=== PATIENT | female | born 1995 | race American Indian/Alaskan Native ===

== ENCOUNTER 2019-07-30 18:37 | Emergency (ER) | payer BC ==
[2019-07-30 18:48] VITALS: BP 140/82
--- NOTE | 2019-07-30 18:49 | Emergency Department Report ---
- General Chief Complaint: Upper Respiratory Infection Stated Complaint: FLU SX Time Seen by Provider: 07/30/19 18:44 Source: patient Mode of arrival: Ambulatory Limitations: No Limitations - History of Present Illness Initial Comments: pt is a 23 yo female who presents to the ED with c/o flu symptoms that began two days ago. she states that her brother tested positive for the flu by nasal swab. she has associated congestion, dry cough, generalized body aches, nausea, chills. she denies any vomiting, diarrhea, abd pain, ear pain, sore throat.she denies any PMHx. pt is a smoker. states she has an allergy to amoxicllin. - Related Data Previous Rx's Medication Instructions Recorded Last Taken Type Ondansetron [Zofran Odt] 4 mg PO Q8HR PRN #12 tab.rapdis 07/30/19 Unknown Rx Oseltamivir [Tamiflu] 75 mg PO BID 5 Days #10 cap 07/30/19 Unknown Rx Allergies Allergy/AdvReac Type Severity Reaction Status Date / Time amoxicillin Allergy Anaphylaxis Verified 07/30/19 18:41 peanuts Allergy Anaphylaxis Uncoded 07/30/19 18:41 ED Review of Systems ROS: Stated complaint: FLU SX Other details as noted in HPI Comment: All other systems reviewed and negative ED Past Medical Hx - Medications Home Medications: Home Medications Medication Instructions Recorded Confirmed Last Taken Type Ondansetron [Zofran Odt] 4 mg PO Q8HR PRN #12 tab.rapdis 07/30/19 Unknown Rx Oseltamivir [Tamiflu] 75 mg PO BID 5 Days #10 cap 07/30/19 Unknown Rx ED Physical Exam - General Limitations: No Limitations General appearance: alert, in no apparent distress - Head Head exam: Present: atraumatic, normocephalic - Eye Eye exam: Present: normal appearance - ENT ENT exam: Present: normal orophraynx, mucous membranes moist, TM's normal bilaterally, normal external ear exam, other (clear nasal drainage bilaterally) - Respiratory Respiratory exam: Present: normal lung sounds bilaterally. Absent: respiratory distress, wheezes, rales, rhonchi, stridor, chest wall tenderness, accessory muscle use, decreased breath sounds, prolonged expiratory - Cardiovascular Cardiovascular Exam: Present: regular rate, normal rhythm, normal heart sounds. Absent: systolic murmur, diastolic murmur, rubs, gallop - Neurological Exam Neurological exam: Present: alert, oriented X3 - Psychiatric Psychiatric exam: Present: normal affect, normal mood - Skin Skin exam: Present: warm, dry, intact ED Course Vital Signs 07/30/19 18:46 Temperature 98.9 F Pulse Rate 92 H Respiratory 18 Rate Blood Pressure 140/82 O2 Sat by Pulse 99 Oximetry ED Medical Decision Making - Medical Decision Making pt is a 23 yo female who presents to the ED with c/o flu symptoms that began two days ago. she states that her brother tested positive for the flu by nasal swab. she has associated congestion, dry cough, generalized body aches, nausea, chills. she denies any vomiting, diarrhea, abd pain, ear pain, sore throat.she denies any PMHx. pt is a smoker. states she has an allergy to amoxicllin. VSS. pts breath sounds are clear bilaterally without w/r/r. pt has clinical s/sx of the flu with a sick contact. pt given prescription for tamiflu and zofran as needed for nausea. advised pt to please take medication as prescribed. increase your fluid intake over the next several days. take tylenol or ibuprofen for body aches. get plenty of rest. follow up with a primary care doctor in the next 2-3 days. return to the emergency room for any new or worsening symptoms Critical care attestation.: If time is entered above; I have spent that time in minutes in the direct care of this critically ill patient, excluding procedure time. ED Disposition Clinical Impression: Influenza Disposition: DC-01 TO HOME OR SELFCARE Is pt being admited?: No Does the pt Need Aspirin: No Condition: Stable Instructions: Influenza (ED) Additional Instructions: please take medication as prescribed. increase your fluid intake over the next several days. take tylenol or ibuprofen for body aches. get plenty of rest. follow up with a primary care doctor in the next 2-3 days. return to the emergency room for any new or worsening symptoms Prescriptions: Oseltamivir [Tamiflu] 75 mg PO BID 5 Days #10 cap Ondansetron [Zofran Odt] 4 mg PO Q8HR PRN #12 tab.rapdis PRN Reason: Nausea And Vomiting Referrals: BRUNO TERAN MD [Staff Physician] - 2-3 Days Time of Disposition: 18:49 Print Language: PRYDEINIG
== END 2019-07-30 19:00 | disposition home or self-care (01) ==
LOC: ED 18:37
DX: J11.1 Influenza due to unidentified influenza virus with other respiratory manifestations (principal); Z79.899 Other long term (current) drug therapy; Z88.1 Allergy status to other antibiotic agents; Z91.010 Allergy to peanuts

== ENCOUNTER 2019-08-26 20:36 | Emergency (ER) | payer BC ==
[2019-08-26] MEDS ORDERED: ONDANSETRON 4 MG/2 ML INJ ONE (20:45)
[2019-08-26] MEDS ORDERED: MECLIZINE 25 MG TAB PO ONE (20:48)
[2019-08-26] MEDS ORDERED: SODIUM CHLORIDE 0.9% 1000 ML 1,000 ML IV ONE (20:48)
[2019-08-26] MEDS ORDERED: ONDANSETRON 4 MG/2 ML INJ IV ONE (20:59)
--- NOTE | 2019-08-26 21:03 | Emergency Department Report ---
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 The dizziness is more of a vertigo-like sensation. She has a mild generalized headache. Denies any vision change, slurred speech or any neurological deficits. She tried some Zofran earlier without much relief. She says that she was previously diagnosed one time with vertigo and prescribe some meclizine but it had never returned and she has never needed to take it. Otherwise no other past medical history. ED Past Medical Hx - Past Medical History Previous Medical History?: No - Surgical History Past Surgical History?: No - Social History Smoking Status: Current Some Day Smoker Substance Use Type: None - Medications Home Medications: Home Medications Medication Instructions Recorded Confirmed Last Taken Type Ondansetron [Zofran Odt] 4 mg PO Q8HR PRN #12 tab.rapdis 07/30/19 Unknown Rx Oseltamivir [Tamiflu] 75 mg PO BID 5 Days #10 cap 07/30/19 Unknown Rx ED Review of Systems ROS: Stated complaint: DIZZINESS Other details as noted in HPI Comment: All other systems reviewed and negative Constitutional: denies: chills, fever Eyes: denies: eye pain, vision change ENT: denies: ear pain, throat pain Respiratory: denies: cough, shortness of breath Cardiovascular: denies: chest pain, palpitations Gastrointestinal: nausea, vomiting. denies: abdominal pain Genitourinary: denies: dysuria, discharge Musculoskeletal: denies: back pain, arthralgia Skin: denies: rash, lesions Neurological: headache, vertigo. denies: weakness, numbness Physical Exam - Physical Exam Vital Signs: Vital Signs 08/26/19 20:37 Temperature 97.5 F L Pulse Rate 92 H Respiratory 14 Rate Blood Pressure 132/59 [Right] O2 Sat by Pulse 100 Oximetry Physical Exam: GENERAL: Patient is ill-appearing. Tearful, actively vomiting. HEENT: Normocephalic. Atraumatic. Patient has moist mucous membranes. EYES: Extraocular motions are intact. Pupils equal react to light bilaterally. There is fatigable horizontal nystagmus. NECK: Supple. Trachea is midline. CHEST/LUNGS: Clear to auscultation. There is no respiratory distress noted. HEART/CARDIOVASCULAR: Regular. There is no tachycardia. There is no gallop rub or murmur. ABDOMEN: There is no abdominal distention. SKIN: Skin is warm and dry. NEURO: The patient is awake, alert, and oriented. The patient is cooperative. The patient has no focal neurologic deficits. The patient has normal speech. Cranial nerves II-12 grossly intact. MUSCULOSKELETAL: There is no tenderness or deformity. There is no limitation range of motion. There is no evidence of acute injury. ED Course Vital Signs 08/26/19 20:37 Temperature 97.5 F L Pulse Rate 92 H Respiratory 14 Rate Blood Pressure 132/59 [Right] O2 Sat by Pulse 100 Oximetry ED Medical Decision Making - Lab Data Result diagrams: 08/26/19 21:42 08/26/19 21:42 - EKG Data -: EKG Interpreted by Me EKG shows normal: sinus rhythm, axis, intervals, QRS complexes, ST-T waves Rate: normal - EKG Data When compared to previous EKG there are: previous EKG unavailable Interpretation: normal EKG - Medical Decision Making She was given some IV fluid resuscitation, Zofran, Reglan and meclizine. At first the patient was ill-appearing with active vomiting, tearful, and anxious about what was going on. Labs have been unremarkable thus far including CBC, metabolic panel and negative . She was reevaluated and says that she is improved but the symptoms have not resolved. I explained that it was important for someone to drive her home from here with any of the symptoms of vertigo as it could be dangerous if she had any worsening of her symptoms while driving. The plan was going to be to give a referral for ENT and a prescription for Zofran. She already has meclizine at home. However the patient eloped from the emergency department without any referrals or prescriptions. - Differential Diagnosis vertigo, dehydration, , hyperthyroid, menieres disease Critical Care Time: No Critical care attestation.: If time is entered above; I have spent that time in minutes in the direct care of this critically ill patient, excluding procedure time. ED Disposition Clinical Impression: Vertigo, Dizziness Nausea & vomiting Qualifiers: Vomiting type: unspecified Vomiting Intractability: unspecified Qualified Code(s): R11.2 - Nausea with vomiting, unspecified Disposition: Z-07 ELOPED Is pt being admited?: No Time of Disposition: 23:09
[2019-08-26] MEDS ORDERED: METOCLOPRAMIDE 10 MG/2 ML INJ IV ONE (21:52)
[2019-08-26 21:58] LABS: Basophils % (Auto) 0.6 % (0.0-1.8); Eosinophils # (Auto) 0.1 K/mm3 (0.0-0.4); Eosinophils % (Auto) 0.8 % (0.0-4.3); Hematocrit 39.6 % (30.3-42.9); Hemoglobin 13.4 gm/dl (10.1-14.3); Lymphocytes # (Auto) 3.4 K/mm3 (1.2-5.4); Lymphocytes % (Auto) 49.8 % (13.4-35.0); Mean Corpuscular HGB Conc 34 % (30-34); Mean Corpuscular Volume 93 fl (79-97); Monocytes # (Auto) 0.4 K/mm3 (0.0-0.8); Monocytes % (Auto) 5.7 % (0.0-7.3); Platelet Count 219 K/mm3 (140-440); Red Blood Count 4.26 M/mm3 (3.65-5.03)
[2019-08-26 22:05] VITALS: BP 119/76
[2019-08-26 22:17] LABS: Alanine Aminotransferase 11 units/L (7-56); Albumin 4.2 g/dL (3.9-5); BUN/Creatinine Ratio 13; Blood Urea Nitrogen 8 mg/dL (7-17); Calcium 8.9 mg/dL (8.4-10.2); Hemolysis Index 9
== END 2019-08-26 23:55 | disposition left against medical advice (07) ==
LOC: ED 20:36
DX: R42 Dizziness and giddiness (principal); R11.2 Nausea with vomiting, unspecified; R51 Headache; F17.200 Nicotine dependence, unspecified, uncomplicated; Z88.1 Allergy status to other antibiotic agents; Z91.010 Allergy to peanuts
CPT/HCPCS: 36415; 80053; 84443; 84703; 85025; 93005; 93010; 96361; 96374; 96375; 99283; J2405; J2765; J7030

== ENCOUNTER 2020-06-12 17:01 | Emergency (ER) | payer SELFPAY ==
[2020-06-12] MEDS ORDERED: ONDANSETRON 4 MG ODT TAB PO ONE (18:17)
[2020-06-12 18:18] VITALS: BP 127/72
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
[2020-06-12] MEDS ORDERED: METOCLOPRAMIDE 10 MG/2 ML INJ IV ONE (19:14)
[2020-06-12] MEDS ORDERED: diphenhydrAMINE 50 MG/ML VIAL IV ONE (19:14)
[2020-06-12] MEDS ORDERED: SODIUM CHLORIDE 0.9% 1000 ML 1,000 ML IV ONE (19:14)
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
[2020-06-12 20:02] LABS: Blood Urea Nitrogen 10 mg/dL (7-17); Calcium 9.3 mg/dL (8.4-10.2); Hemolysis Index 8
[2020-06-12 20:04] LABS: BUN/Creatinine Ratio 17
[2020-06-12 20:13] LABS: Hematocrit 40.2 % (30.3-42.9); Hemoglobin 13.3 gm/dl (10.1-14.3); Mean Corpuscular HGB Conc 33 % (30-34); Mean Corpuscular Volume 94 fl (79-97); Platelet Count 207 K/mm3 (140-440); Red Blood Count 4.26 M/mm3 (3.65-5.03)
[2020-06-12 20:25] LABS: Albumin 4.4 g/dL (3.9-5); Bilirubin,Direct 0.3 mg/dL (0-0.2)
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
[2020-06-12 20:49] LABS: Basophils % (Manual) 0 % (0.0-1.8); Eosinophils % (Manual) 0 % (0.0-4.3); RBC Morphology Normal; Total Cells Counted 100
[2020-06-12] MEDS ORDERED: BUTALB/ACETAMINOPHEN/CAFFEINE TAB PO ONE (21:07)
== END 2020-06-12 22:35 | disposition home or self-care (01) ==
LOC: ED 17:01
DX: S40.812A Abrasion of left upper arm, initial encounter (principal); S40.811A Abrasion of right upper arm, initial encounter; S80.812A Abrasion, left lower leg, initial encounter; S80.811A Abrasion, right lower leg, initial encounter; G44.319 Acute post-traumatic headache, not intractable; F17.200 Nicotine dependence, unspecified, uncomplicated; Z91.010 Allergy to peanuts; Z88.1 Allergy status to other antibiotic agents; V89.2XXA Person injured in unspecified motor-vehicle accident, traffic, initial encounter; Y93.89 Activity, other specified; Y92.410 Unspecified street and highway as the place of occurrence of the external cause; Y99.8 Other external cause status
CPT/HCPCS: 36415; 70450; 72125; 80048; 80076; 84703; 85007; 85025; 96361; 96374; 96375; 99284; J1200; J2765; J7030; Q0162